=== PATIENT | male | born 1985 | race Caucasian/White ===

== ENCOUNTER 2018-08-23 13:36 | Emergency (ER) | payer OTHER ==
[2018-08-23 13:42] VITALS: BP 120/73
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
== END 2018-08-23 14:12 | disposition home or self-care (01) ==
DX: S93.402A Sprain of unspecified ligament of left ankle, initial encounter (principal); X50.0XXA Overexertion from strenuous movement or load, initial encounter; Y93.55 Activity, bike riding
CPT/HCPCS: L4386